=== PATIENT | male | born 1955 | race Caucasian/White ===

== ENCOUNTER 2022-12-02 06:14 | Day surgery (SDC) | payer BC, SELFPAY ==
[2022-12-02] VITALS (13 sets, daily range): BP systolic 123–142; BP diastolic 74–90; PULSE 68–108; RESP 15–20; TEMP 36.4–36.6; O2SAT 92–99; BMI 31.1
[2022-12-02] MEDS: LACTATED RINGERS 1000 ML 1,000 ML 100 ML IV (07:00)
[2022-12-02] MEDS: SODIUM CHLORIDE 0.9 % (FLUSH) 10 ML SYRINGE IVF (07:01)
[2022-12-02] MEDS: CLINDAMYCIN 900 MG/50 ML-D5W IVPB (07:47)
--- NOTE | 2022-12-02 10:08 | W.PM.NB ---
Nerve Block Nerve Block Time Seen by Provider: 07:35 Date Seen: 12/02/22 Type of block requested by surgeon for post-operative analgesia: TAP Side: bilateral Time out performed: Yes Verification of patient name: Yes Verification of date of : Yes Site marking: site marked Name of person performing procedure: Trev Mcnamara Continuous monitoring Was continuous monitoring of O2 sat, B/P, youth nutritional monitor, recorded every 15 minutes?: Yes Procedure Checklist: sterile prep, needles and gloves Ultrasound guided. Images saved: Yes Medications given in 5ml increments after negative aspiration: Marcaine %: 0.25 mL: 30 Needle gauge: 20 and Exparel mL: 10 Needle gauge: 20 Patient tolerated procedure well: Yes Additional comments: Injected in 5ml increments after negative aspiration Block Charges Block Charge (with Pro Fee): TAP Bilateral Use of Ultrasound Machine for Block: Yes- US Guidance/pain block
--- NOTE | 2022-12-02 10:31 | P.GSOP_ITS ---
Operative Note Date of procedure: 12/02/22 Pre-op diagnosis: Ventral hernia Post-op diagnosis: Same Type of Procedure: Retro rectus repair of large ventral hernia with placement of mesh. Indications: Patient is a 59-year-old male who presented to clinic with a symptomatic abdominal hernia. Workup was obtained, which included a CT scan. This demonstrated a large hernia, with multiple small adjacent hernias. Different treatment options were reviewed with the patient, with him deciding to proceed with operative intervention. Risks and benefits of operative intervention were discussed at length with the patient. Risks included but was not limited to: Bleeding, infection, risk of damage to surrounding structures, possible need for additional procedures, risk of recurrent and postoperative complications such as pneumonia, pulmonary emboli or [place]. All questions and concerns were addressed with the patient agreeing to proceed. Procedure Description: After discussing the risks and benefits of the procedure, the patient signed informed consent.? The operative site was marked and the patient was brought to the operating room and placed on the operating table in supine position.? Care was taken to pad the patient's pressure points.?? The patient was then intubated by anesthesia.?? The operative site was then prepped and draped in the usual sterile fashion.? A time-out was then performed. A vertical incision was made directly over where the hernia bulge was palpated. This was just superior to the umbilicus. Subcutaneous tissue was dissected in the midline carefully with cautery and Metzenbaum scissors until the hernia sac was visualized in the subcutaneous space. The hernia sac was carefully di ssected circumferentially down to the fascia. The hernia sac was then entered, with evidence of incarcerated omentum, but no incarcerated bowel. There were adhesions of omentum to the hernia sac, which were taken down with Metzenbaum scissors. The incision was extended through the hernia sac superiorly and inferiorly with cautery. On palpating the underside of the fascia multiple small hernias were appreciated just superior and inferior. The fascial bridges were transected to connect all of the defects. The hernia sac was removed from the fascial edges and passed off on the back table to be sent for disposal. The resulting fascial defect measured approximately 15 cm. I then proceeded with defining a retro rectus space for mesh placement. Anterior fascia was incised on the left side just medial to the rectus muscle. This incision was extended superiorly and inferiorly. Rectus muscle was bluntly retracted laterally. The retro rectus space on the left was developed by using blunt and cautery dissection until enough space was developed to have a 3 cm mesh overlap for hernia repair. This dissection was extended superiorly across the [place]. The dissection then was done similarly on the right side of the fascial defect and rectus muscle. This dissection then was extended inferiorly until I was able to create a circumferential space for mesh placement. The fascial defect was measuring 15 cm by 5 cm. There was enough laxity of their anterior sheath to bring the anterior fascial edges together with minimal tension. Rectus muscle was mobilized off of anterior sheath lightly to be able to place trans fascial sutures when closing anterior fascia. Hemostasis throughout this dissection was achieved with cautery. The posterior sheath was closed with 2 running 0-0 Vicryl sutures therefore isolating the mesh from intraperitoneal cavity. I then used Ventralite ST mesh measuring 25 x 15 cm to cover the hernia defect. There was some bunching of the mesh, so 5 cm was removed from the inferior aspect and 4 cm of the lateral edge. After the mesh was cut it was placed into the retro rectus space and appeared to lay without bunching or redundancy. The mesh was anchored in place with 2-0 prolene sutures. The sutures were placed through the anterior fascia and rectus muscle circumferentially. The anterior fascia was then closed with two running 0-Maxon suture. There was minimal tension in this layer. Subcutaneous tissues were reapproximated with interrupted 3-0 Vicryl sutures and the umbilicus was tacked down to the anterior fascia with a single 3-0 Vicryl stitch. Skin was closed with a running 4-0 Monocryl stitch. Steri-Strips were placed over the incision. An abdominal binder was placed on the patient. At the end of the case all counts were correct. Patient tolerated this procedure well and was transferred to PACU in stable condition. Findings: Large ventral hernia, measuring 15 cm x 5 cm repaired with mesh. Anesthesia: GETA Surgeon: Melissa Jones MD Estimated blood loss (mL): 25 Condition: stable Disposition: same day
--- NOTE | 2022-12-02 10:48 | W.ANESCHARGE ---
Anesthesia Charges Start Date/Time Anesthesia Start Date: 12/02/22 Anesthesia Start Time: 07:32 Stop Date/Time Anesthesia Stop Date: 12/02/22 Anesthesia Stop Time: 10:45
--- NOTE | 2022-12-02 11:21 | SUR.PHASEI ---
patient met discharge criteria per anesthesia
[2022-12-02] MEDS: OXYCODONE 5 MG TABLET PO (12:14)
== END 2022-12-02 12:51 | disposition home or self-care (01) ==
PROVIDERS: PCP Family Medicine; Visit Provider Surgery
PROC: (CPT 49595; principal; 2022-12-02 07:30)
DX: K43.9 Ventral hernia without obstruction or gangrene (principal); G89.18 Other acute postprocedural pain
CPT/HCPCS: 49595; 00752; 64488; 76942; 82962; A4467; A9270; C1781; C9290; J0330; J0665; J1100; J1200; J2371; J2405; J2704; J3010; J3490; J7120; S0077

== ENCOUNTER 2024-06-04 08:30 | Outpatient (RCR) | payer MEDICARE, SELFPAY ==
--- NOTE | 2024-03-20 09:49 | ONC.NURNOTE ---
Faith from Radiation oncology called to let us know pt would like to delay his treatment and he can come off our [facility] schedule on 03/21/24 for a PIV start. Radiation oncology will call [facility] when pt ready to start treatment.
--- NOTE | 2024-03-23 09:12 | URNOTE ---
Request received for authorization for Degarelix ([id number]). Prior authorization is not required per [facility] website.
--- NOTE | 2024-03-23 09:19 | PC.NURSE ---
Diagnosis: Recurrent Prostate Cancer
[2024-03-26 13:08] VITALS: BP 110/69; PULSE 71; RESP 16; TEMP 36.2; O2SAT 97
--- NOTE | 2024-03-30 15:44 | ONC.NURNOTE ---
Mr. Todd called the clinic this afternoon to report 2 lumps in his abdomen where he received firmagon 240 mg as 2 injections on 03/26/24. He does report mild to moderate discomfort and wants to know if this is to be expected with this medication. He has not needed to take any pain medication for this discomfort. [employer] Sp[employer] informed him that having small lumps and mild skin reaction is not uncommon for this medication and the injection site symptoms should improve over the next 1-3 days. He denies fever or chills or drainage from the injection sites. He is able to take an over the counter pain reliever if needed for mild to moderate discomfort. If the discomfort becomes severe, or he develops signs of infection or cellulitis, he should seek medical care. He is requested to call the [facility] back on 04/02/24 with an update on how he is feeling. Mr. Todd is agreeable to this plan.
--- NOTE | 2024-04-09 15:03 | URNOTE ---
Per [facility]'s Medical INjectable Drug list, prior auth is not required for ELigard/Leuprolide ([id number])
[2024-04-24 11:44] VITALS: BP 129/75; PULSE 70; RESP 16; TEMP 35.8; O2SAT 98
[2024-06-04 11:30] LABS: Creatinine* 1.2 mg/dL (0.5-1.5); Estimated Glomerular Filt Rate 65 ml/min
[2024-06-04 12:02] LABS: PSA Diagnostic* 0.08 ng/mL (0.10-4.00)
== END 2024-09-22 23:59 | disposition home or self-care (01) ==
LOC: CCIC 08:30
PROVIDERS: PCP Family Medicine; Referring Provider Family Medicine; Visit Provider Clinical Nurse Specialist
DX: C61 Malignant neoplasm of prostate (principal)
CPT/HCPCS: 36415; 82565; 84153; 96401; 96402; 99211; J9155; J9217

== ENCOUNTER 2024-10-10 08:35 | Outpatient (RCR) | payer MEDICARE, SELFPAY ==
[2024-10-10 09:33] LABS: PSA Diagnostic* < 0.06 ng/mL (0.10-4.00)
[2024-10-11 18:54] LABS: Testosterone, Adult Male 45 ng/dL (300-720)
== END 2025-04-08 23:59 | disposition home or self-care (01) ==
LOC: CCIC 08:35
PROVIDERS: PCP Family Medicine; Visit Provider Clinical Nurse Specialist
DX: C61 Malignant neoplasm of prostate (principal)
CPT/HCPCS: 36415; 84153; 84403

== ENCOUNTER 2024-12-31 13:19 | Outpatient (CLI) | payer MEDICARE, SELFPAY ==
[2024-12-31 14:35] LABS: PSA Diagnostic* < 0.06 ng/mL (0.10-4.00)
[2025-01-01 12:09] LABS: Testosterone, Adult Male 328 ng/dL (300-720)
== END 2024-12-31 13:20 | disposition home or self-care (01) ==
LOC: LAB 13:20
PROVIDERS: PCP Family Medicine; Visit Provider Physician Assistant
DX: R97.21 Rising PSA following treatment for malignant neoplasm of prostate (principal)
CPT/HCPCS: 36415; 84153; 84403